=== PATIENT | female | born 1940 | race Caucasian/White ===

== ENCOUNTER 2023-03-27 02:54 | Inpatient (IN) | payer MEDICARE, SELFPAY ==
[2023-03-26 22:23] VITALS: BMI 24.3
[2023-03-26 22:30] VITALS: BP 133/67
[2023-03-26 22:48] LABS: % Basophils 0.3 % (0-2); % Eosinophils 0.1 % (0-6); % Immature Granulocytes 0.4 % (0-0.5); % Lymphocytes 4.5 % (20.5-51.1); % Monocytes 6.8 % (1.7-9.3); % Neutrophils 87.9 % (42.2-75.2); Absolute Basophils 0.1 10^3/uL (0-0.2); Absolute Immature Granulocytes 0.1 10^3/uL (0-0.05); Absolute Lymphocytes 0.8 10^3/uL (1.2-3.4); Absolute Monocytes 1.2 10^3/uL (0.1-0.6); Absolute Neutrophils 15.9 10^3/uL (1.4-6.5); Hematocrit 31.5 % (37.0-47.0); Mean Corp Hgb Conc. 34.9 g/dL (33.0-37.0); Mean Corpuscular Volume 83.1 fL (81.0-99.0); Mean Platelet Volume 9.2 fL (7.4-10.4); Nucleated Red Blood Cells % 0 %; Platelet Count 243 10^3/uL (130-400); Red Blood Cell Count 3.79 10^6/uL (4.20-5.40); Red Cell Dist. Width 13.3 % (11.5-14.5); White Blood Cell Count 18.1 10^3/uL (4.8-10.8)
[2023-03-26 23:00] VITALS: BP 129/68
[2023-03-26 23:01] LABS: ALT (SGPT) 18 U/L (0-35); AST (SGOT) 27 U/L (14-36); Albumin 4.3 g/dl (3.5-5.0); Alkaline Phosphatase 85 U/L (38-126); Blood Urea Nitrogen 13 mg/dl (7-17); Calcium 8.8 mg/dl (8.4-10.2); Carbon Dioxide 25 mmol/L (22-30); Chloride 98 mmol/L (98-107); Estimated Creatinine Clearance 54 ml/min; Glucose 124 mg/dl (70-99); Potassium 3.7 mmol/L (3.5-5.1); Sodium 131 mmol/L (135-145); Total Bilirubin 1.2 mg/dl (0.2-1.3); eGFR > 60.00
[2023-03-26 23:03] LABS: COVID-19 Antigen Negative (Negative)
--- NOTE | 2023-03-26 23:58 | ED.GENMED ---
History of Present Illness
General
Chief Complaint: Cold/Flu/URI Symptoms
Source: patient and family
Time Seen by Provider: 03/26/23 23:46
Travel History
Have you had any contact with someone who has COVID-19?: No
Do you have any symptoms of coronavirus? Fever > 100 degrees, chills, cough, shortness of breath, sore throat, loss of taste or smell, muscle aches, or headache?: Yes
Symptoms:: fever, body aches
History of Present Illness
History of Present Illness:
82-year-old female presents to the emergency room complaining of nausea, body aches, dizziness. Patient began feeling this way today. She was found to have a fever in triage of 100.4. Patient denies sore throat. She denies significant cough. No
diarrhea. Patient was recently treated for urinary tract infection and completed the antibiotic course 2 days ago. She does not know the name of the antibiotic that she took. She denies abdominal pain.
Past History
Past History
ED Past Medical History: HTN and Hypercholesterolemia
ED Past Surgical History: Appendectomy, Bowel resection and Orthopedic (Right knee replacement)
Social History
Tobacco: Non-smoker
Alcohol: None
Drug: None
Living: alone
Employment: Retired
Phy Exam
Physical Exam
Physical Exam:
General: Awake, Alert, Oriented X3. No acute distress.
Vitals: unremarkable
Head: Atraumatic
Eyes: Pupils equal, EOMI
Throat: Airway intact, no exudates
Neck: Trachea midline
Lungs: Clear and equal b/l
Heart: Regular rate, no murmurs
Abd: Soft, mild tenderness in the epigastrium and right upper quadrant, No pulsatile mass
Back: Mild right CVA tenderness
Neuro: Nonfocal
Skin: Warm, dry, no rash
Extremities: pulses equal b/l, no edema
Course
Orders/Labs/Results
Orders:
Orders
03/26/23 22:42
COVID-19 Antigen Urgent
Source: Nasal Swab
Complete Blood Count/With Diff Urgent
Comprehensive Metabolic Panel Urgent
Lipase Urgent
Comment: ADD ON
Influenza A+B Rapid Molecular Urgent
FR[place] Source: Nasal Swab
Specimen Description:
03/26/23 23:56
Urinalysis Reflex To Culture Urgent
Date Specimen was Collected: 03/27/23
Time Specimen was Collected: 00:01
0.9% Sodium Chloride 500 ml [Nss] 500 ml IV BOLUS
Ondansetron Injectable [Zofran] 4 mg IV NOW STA
03/26/23 23:57
Add On- LAB Urgent
Tests Added?: lipase
03/26/23 23:59
Acetaminophen [Tylenol] 650 mg PO NOW STA
03/27/23 00:05
Urine Microscopic Reflex Cult Urgent
Urine Culture Urgent
FRANCE Source: U
Specimen Description:
Date Specimen was Collected: 03/27/23
Time Specimen was Collected: 00:01
03/27/23 00:12
CR Chest - 2 Views Urgent
Reason For Exam: fever
03/27/23 01:28
CefTRIAXone [Rocephin] 1,000 mg IV NOW STA
03/27/23 01:53
Admit/Transfer Patient As Directed
Co-Sign Provider:
Level of Care: Inpatient admission
Assign to:: Telemetry
Physician / Group: [email or web address]
Diagnosis: Complicated UTI, Overactive bladder
Reason for Telemetry: Arrhythmia
Date to Stop Telemetry: 03/30/23
Time to Stop Telemetry: 11:00
Reason for Hospitalization: Complicated UTI, Overactive bladder
Expected length of stay greater than two midnights?: Yes
ELOS- Estimated Length of Stay in days: 4
I certify the patient meets the requirements for IP care: Yes
03/27/23 01:57
Code Status As Directed
Resuscitation Status: Do not resuscitate
Based on pt advanced directive or healthcare POA form: Yes
Blood Culture Routine
FRANCE Source: Blood/Venous
Specimen Description:
DNR Bracelet Application ONCE
03/27/23 02:00
LevoFLOXacin 500 MG/100 ML [Levaquin] 500 mg in 100 ml IV Q24H
03/27/23 03:32
0.9% Sodium Chloride 1000 ml [Nss] 1,000 ml IV 60 mls/hr
03/27/23 03:32
EKG [Electrocardiogram (*1)] Routine
Reason for Study: QTc Monitoring
Consult Notification Routine
Specialty to Notify: Infectious Disease
INFECTIOUS DISEASE CONSULT Routine
Consulting Provider: Altagracia Cabrera
Was physician already notified: No
Reason for consult: Sespsis. Failed OP ABx for UTI.HX ESBL EcoliUCx.POS Bladder stimulator
Activity As Directed
Activity Level: With Assistance
Vital Signs As Directed
Frequency: Per unit guidelines
Weight As Directed
Frequency: Daily
03/27/23 06:00
EKG [Electrocardiogram (*1)] IN AM
Reason for Study: QTc Monitoring
Cholesterol Lowering
At Your Request: Full Participation
Cholesterol Lowering: Sodium, 2 Gram
Basic Metabolic Panel IN AM
Complete Blood Count/No Diff IN AM
03/27/23 08:00
Aspirin Low Dose EC [Aspir Low (Enteric Coated)] 81 mg PO DAILY
Lisinopril [Zestril] 5 mg PO DAILY
Metoprolol Xl [Toprol Xl] 25 mg PO BID
Midodrine [ProAmatine] 2.5 mg PO TID@0800,1300,1800
Paroxetine [Paxil] 40 mg PO DAILY
Rosuvastatin Calcium [Crestor] 20 mg PO DAILY
03/27/23 18:00
Rivaroxaban [Xarelto] 20 mg PO QPM
03/30/23 11:00
DC Protocol for Telemetry ONCE
Abnormal Lab Results
03/26/23 03/27/23
22:42 00:05
WBC 18.1 H 10^3/uL
(4.8-10.8)
RBC 3.79 L 10^6/uL
(4.20-5.40)
Hgb 11.0 L g/dL
(12.0-16.0)
Hct 31.5 L %
(37.0-47.0)
Abs Immat Gran (auto) 0.1 H 10^3/uL
(0-0.05)
Absolute Neuts (auto) 15.9 H 10^3/uL
(1.4-6.5)
Absolute Lymphs (auto) 0.8 L 10^3/uL
(1.2-3.4)
Absolute Monos (auto) 1.2 H 10^3/uL
(0.1-0.6)
Neutrophils % 87.9 H %
(42.2-75.2)
Lymphocytes % 4.5 L %
(20.5-51.1)
Sodium 131 L mmol/L
(135-145)
Glucose 124 H mg/dl
(70-99)
Ur Occult Blood Reflex 2+ A
(Negative)
Leukocyte Esterase Rfl 2+ A
(Negative)
Urine RBC 7-10 A /HPF
(0-2)
Urine WBC (Reflex) >100 A /HPF
(0-5)
Urine Bacteria (Reflex) Moderate A
(Negative)
Urine Yeast Moderate A
(Negative)
Urine Albumin (Reflex) 1+ A
(Neg - Trace)
03/26/23 22:42
03/26/23 22:42
Vital Signs
Initial and Last Documented VS:
Initial Vital Signs
Temp Pulse Resp Pulse Ox
100.4 F H 88 20 97
03/26/23 22:23 03/26/23 22:23 03/26/23 22:23 03/26/23 22:23
Last Documented Vital Signs
Temp Pulse Resp BP Pulse Ox
98.8 F 86 16 132/58 96
03/27/23 03:41 03/27/23 03:41 03/27/23 03:41 03/27/23 03:41 03/27/23 03:41
MDM/Problems Addressed
Differential Diagnosis Includes:
Pyelonephritis, resistant UTI, influenza, COVID
MDM/Problems Addressed:
Viral studies negative. Urine is quite consistent with urinary tract infection. Patient was febrile here. She reports being on 2 courses of antibiotics and immediately has return of symptoms when she stops antibiotics. Culture results were not
available. We did call [facility] for results. They sent urinalysis results but not the culture results. Will start with Rocephin. Urinalysis and culture sent here.
Chronic conditions affecting care: HTN and Other (Hyperlipidemia, history of urinary retention, bladder stimulator)
*Pulse Oximetry
Patient hypoxic: no
*EKG
Interpreted by ED Provider?: Yes
Interpretation: normal
Heart Rate: 83
Rate: normal
Rhythm: sinus
Windfall: normal axis
Interval: normal interval
QRS Pattern: normal QRS
Ischemia: no ischemia
*Durability Technician Interpretation
Rate: normal
Interpretation: normal
Heart Rate: 83
Rhythm: sinus
*Critical Care Note
Total Time (30-74mins, 75-104mins- exclusive of procedures): Not Applicable
Data Reviewed
Review of Other/Old Records Reveals: Testing (Urinalysis results from [facility])
Patient Management
Social determinants of health affecting care: Living situation
ED Attending Note
-
Portions of this chart may have been created with voice recognition software.� Occasional wrong word or��sound alike� substitutions may have occurred due to the inherent limitations of voice recognition software.
Discharge Plan
Departure
Patient Disposition: Admit
Date of Disposition: 03/27/23
Time of Disposition: 01:31
Admit to: Med/Surg
Presentation/result/management discussed w/ accepting MD/DO: Hospitalist
Condition: Fair
Discharge Problem:
Acute UTI
Interventions
Interventions:
*Risk Screen - Suicide Last Done: 03/27/23 04:17
*General Assessment Last Done: 03/26/23 22:23
*Neglect/Abuse Screening Last Done: 03/26/23 22:23
ED- Fall Risk Assessment Last Done: 03/26/23 22:53
*ED COVID-19 Vaccine History Last Done: 03/27/23 04:17
*Nursing Disposition Last Done: 03/27/23 03:30
ED- Pulmonary Assessment Last Done: 03/26/23 22:53
Discharge Date and Time
Discharge Date/Time: 03/27/23 03:32
[2023-03-27] VITALS (9 sets, daily range): BP systolic 96–134; BP diastolic 50–82; BMI 25.2
[2023-03-27] MEDS: TYLENOL 650 MG PO ×3 (00:07→20:57)
[2023-03-27] MEDS: ZOFRAN 4 MG IV (00:08)
[2023-03-27] MEDS: NSS 500 IV (00:13)
[2023-03-27 00:22] LABS: Urine Albumin 1+ (Neg - Trace); Urine Bilirubin Negative (Negative); Urine Character Slightly Cloudy (Clear); Urine Color Yellow; Urine Glucose Negative (Negative); Urine Ketone Negative (Negative); Urine Leukocyte 2+ (Negative); Urine Nitrite Negative (Negative); Urine Occult Blood 2+ (Negative); Urine Urobilinogen Negative (Neg - 1+)
[2023-03-27 00:31] LABS: Lipase 177 U/L (23-300)
[2023-03-27 00:34] LABS: Urine Bacteria Moderate (Negative); Urine White Cell >100 /HPF (0-5)
[2023-03-27 00:35] LABS: Urine Yeast Moderate (Negative)
--- NOTE | 2023-03-27 01:48 | HPS.HSE ---
Family Physician
-
Family Physician: Garrett Bush
Chief Complaint
-
Fever
History of Present Illness
82F HX HX overactive bladder s/p bladder stimulator, UTI seen at ER for evalaution of nausea, body aches, dizziness. Onset today. She reports fever in triage of 100.4. Patient was recently treated for urinary tract infection and completed the
ABx course 2 days ago. he does not know the name of the ABx
ROS
No sore throat.
No cough.
No diarrhea.
No abdominal pain.
Medical History
Past Medical History
Past Medical History: Reports Other
Additional Past Medical History:
Coronary Artery Disease
Essential Hypertension
Hyperlipidemia
Anxiety/Depression
GERD
Overactive Bladder
Past Surgical History: Reports Other
Additional Past Surgical History:
Bilateral Shoulder Arthroscopy
Bilateral Carpal Tunnel
Bilateral Total Knee Replacement
Cholecystectomy
Hysterectomy
Appendectomy
Hemorrhoidectomy
Tonsillectomy
Social History
Tobacco: Non-smoker
Alcohol: None
Living: Alone
Family History
Family History: Not pertinent
Allergies / Home Medications
Allergies reflects when Allergies were last updated in [employer].
Home Medications with original date entered in [employer]
Allergy/Medication List:
Allergies
Allergy/AdvReac Type Severity Reaction Status Date / Time
adhesive tape Allergy Blistering Verified 12/17/22 03:49
cat dander Allergy CONGESTION Verified 12/17/22 17:41
erythromycin base Allergy abdominal Verified 12/17/22 03:49
[Erythromycin Base] pain
Iodinated Contrast Media Allergy GI Verified 12/17/22 03:49
Distress,
SOB
pollen extracts Allergy Congestion Verified 12/17/22 17:41
DUCK Allergy CONGESTION Uncoded 12/17/22 17:41
Home Medications
cholecalciferol (vitamin D3) 25 mcg (1,000 unit) tablet 1,000 units PO DAILY Supplement ##0 05/23/09
lisinopril 5 mg tablet 5 mg PO DAILY Blood Pressure 02/05/16
ascorbic acid (vitamin C) 500 mg tablet (Vitamin C) 500 mg PO DAILY Supplement 03/16/22
aspirin 81 mg tablet,delayed release 81 mg PO DAILY Blood Clot Prevention/Tx 03/16/22
calcium carbonate 600 mg-vitamin D3 5 mcg (200 unit) tablet 1 tab PO BID Supplement 03/16/22
fexofenadine 180 mg tablet 180 mg PO DAILY Allergies 03/16/22
glucosamine sulf dipot chlr,msm,chond 550 mg-C 30 mg-apple 1 mg capsule (Glucosamine Chondroitin) 1 cap PO BID Supplement 03/16/22
isosorbide mononitrate 30 mg tablet,extended release 24 hr 30 mg PO DAILY Heart Disease/Condition 03/16/22
pantoprazole 40 mg tablet,delayed release 40 mg PO QPM Gastrointestinal Issue 03/16/22
paroxetine HCl 40 mg tablet 40 mg PO DAILY Mental Health/Anxiety 12/16/22
rosuvastatin 20 mg tablet 20 mg PO DAILY High Cholesterol 12/16/22
<del>cefdinir</del> <del>300</del> <del>mg</del> <del>capsule</del> <del>300</del> <del>mg</del> <del>PO</del> <del>BID</del> <del>6</del> <del>days</del> <del>#12</del> <del>caps</del> <del>12/19/22</del>
meclizine 25 mg tablet 25 mg PO Q8HPRN PRN vertigo #20 tabs 12/19/22
metoprolol succinate 25 mg tablet,extended release 24 hr 25 mg PO BID Blood Pressure #60 tabs 12/19/22
midodrine 5 mg tablet 2.5 mg PO TID@0800,1300,1800 #90 tabs 12/19/22
rivaroxaban 20 mg tablet (Xarelto) 20 mg PO QPM #30 tabs 12/19/22
<del>ciprofloxacin</del> <del>HCl</del> <del>250</del> <del>mg</del> <del>tablet</del> <del>250</del> <del>mg</del> <del>PO</del> <del>BID</del> <del>#6</del> <del>tabs</del> <del>12/21/22</del>
Review of Systems
-
Constitutional: Reports Fever
EENT: Reports No Symptoms
Respiratory: Reports No Symptoms
Cardiac: Reports No Symptoms
Abdomen/GI: Reports No Symptoms
: Reports No Symptoms
Musculoskeletal: Reports No Symptoms
Skin: Reports No Symptoms
Neurological: Reports No Symptoms
Endocrine: Reports No Symptoms
Hematologic/Lymphatic: Reports No Symptoms
Psych: Reports No Symptoms
Physical Exam
Vital Signs
Vital Signs
Temp Pulse Resp BP Pulse Ox
100.4 F H 82 23 129/68 96
03/26/23 22:23 03/26/23 23:30 03/26/23 23:30 03/26/23 23:00 03/26/23 23:30
Physical Exam
General: Other (see below )
Laboratory Results
-
03/26/23 22:42
03/26/23 22:42
Laboratory Results
Total Bilirubin 1.2 mg/dl (0.2-1.3) 03/26/23 22:42
AST 27 U/L (14-36) 03/26/23 22:42
ALT 18 U/L (0-35) 03/26/23 22:42
Alkaline Phosphatase 85 U/L (38-126) 03/26/23 22:42
Lipase 177 U/L (23-300) 03/26/23 22:42
Data Reviewed
-
Lab Data: Labs Reviewed by me
Old Records: Reviewed
Impression/Plan
-
Reviewed VS: Tc 100.4 , Normotensive, No ST
PE
General: Comfortable and Conversant
HEENT: Anicteric, Moist mucous membranes
Respiratory: Clear and Non Labored Respirations
Cardiac: S1/S2 and Regular Rhythm; No Tachycardia
GI: Soft, mild tenderness in the epigastrium and right upper quadrant
Musculoskeletal: No Clubbing, No Cyanosis and No Edema
Skin: Warm and Dry
Neuro: Awake, Alert, Oriented and No Motor Deficits; No Facial Droop or Tremors
Psych: Calm
Data
WCC 18
Hgb 11
Na 131
nl Cr
nl GFR
POS UA for UTI
UCx sent
NEG Covid Ag
CXR; pending report
Last hospitalist admission 12/18/22 - 12/19/22 P Dxs:
UTI
Prx AF
Postural hypotension
Vertigo
Hyponatremia
Coronary artery disease
Benign essential hypertension
Hyperlipidemia
Anxiety/depression
Gastroesophageal reflux disease
Overactive bladder status post bladder stimulator
12/18/22 ECHO
LVEF 61%
Mild MR
Borderline , peak/mean gradient 14/8 mmHg without aortic regurgitation
nl RH
ASSESSMENT & PLAN
Sepsis due to UTI
Presumed complicated UTI - failed OP PO ABx
Recent UTI s/p completion of unknown ABx 2 days ago
HX Overactive bladder status post bladder stimulator
HX ESBL E Coli POS UCx ( 12/16/22) resistant CFTZ, CFP but sensitive to Cipro, LVQ and Zosyn
- Empiric IV LVQ
- maintained on Myrbetriq and Toviaz as outpatient
- IVF
- f/u UCx, BCx
- ID consult
Hyponatremia - mild, asymtomatic
- IVF and recheck Na in AM
CAD HX ; stable
- cont. aspirin and Imdur
Essential HTN
-Held HCTZ due to hyponatremia
- cont. lisinopril and Metoprolol
Hyperlipidemia
- cont. Crestor
Anxiety/Depression
- cont. Paxil
GERD
- cont. Protonix
DVT Proph: SCDs
Code Status: DNR per patient
IP TLM
[2023-03-27] MEDS: ROCEPHIN 1000 MG IV (01:54)
[2023-03-27] MEDS: LEVAQUIN 100 IV (02:31)
[2023-03-27] MEDS: NSS 1000 IV ×2 (03:48→20:57)
[2023-03-27] MEDS: FLUSH (NSS) 1 FLUSH IV (03:49)
--- NOTE | 2023-03-27 04:00 | PTCARENOTE ---
Received patient from ER. Patient AAOx3, she has urinary frequency/urgency. Patient admitted to the unit. Some nausea, taking sips of water. Normal sinus on the monitor. VSS. Patient verbalized an understanding to ring for all transfers. BSC placed
nearby. Call rocha in reach. Bed alarm placed.
[2023-03-27] MEDS: COMPAZINE 5 MG IV ×3 (05:08→18:15)
--- NOTE | 2023-03-27 05:18 | PTCARENOTE ---
EKG done upon transfer to [facility] per order. Completion time was approximately 0400 and it was reviewed by the covering provider. 6am 2nd EKG not done pending clarification due to proximity of 1st EKG. Will advise maddison NIEVES.
[2023-03-27 08:23] LABS: Hematocrit 28.6 % (37.0-47.0); Hemoglobin 10.3 g/dL (12.0-16.0); Mean Corpuscular Hgb 28.6 pg (27.0-31.0); Mean Corpuscular Volume 79.4 fL (81.0-99.0); Red Cell Dist. Width 13.1 % (11.5-14.5); White Blood Cell Count 17.3 10^3/uL (4.8-10.8)
[2023-03-27 08:56] LABS: Blood Urea Nitrogen 12 mg/dl (7-17); Calcium 8.6 mg/dl (8.4-10.2); Carbon Dioxide 21 mmol/L (22-30); Chloride 99 mmol/L (98-107); Estimated Creatinine Clearance 61 ml/min; Glucose 136 mg/dl (70-99); Potassium 3.9 mmol/L (3.5-5.1); Sodium 131 mmol/L (135-145); eGFR > 60.00
[2023-03-27] MEDS: PAXIL 40 MG PO (08:56)
[2023-03-27] MEDS: CRESTOR 20 MG PO (08:56)
[2023-03-27] MEDS: ProAmatine 2.5 MG PO ×3 (08:56→18:10)
[2023-03-27] MEDS: ASPIR LOW (ENTERIC COATED) 81 MG PO (08:56)
[2023-03-27] MEDS: ZESTRIL 5 MG PO (08:57)
[2023-03-27] MEDS: TOPROL XL 25 MG PO ×2 (08:57→20:56)
--- NOTE | 2023-03-27 10:58 | W.PN.HOSP.TC ---
Today's Communication/Plan
-
Continue IV abx
Follow culture results
Treat nausea
Assessment / Plan
Assessment / Plan
82F woman with a history of overactive bladder s/p bladder stimulator, UTI, seen in the ER for evalaution of nausea, body aches, dizziness. Onset � She�had a fever in triage of 100.4. � Patient was recently treated for urinary tract infection with
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 She does not know the name of the ABx she took.
Problem list at time of admit:
Coronary Artery Disease
Essential Hypertension
Hyperlipidemia
Anxiety/Depression
GERD
Overactive Bladder
Past Surgical History: Reports Other
Additional Past Surgical History:
Bilateral Shoulder Arthroscopy
Bilateral Carpal Tunnel
Bilateral Total Knee Replacement
Cholecystectomy
Hysterectomy
Appendectomy
Hemorrhoidectomy
Tonsillectomy
1. Sepsis due to UTI: continues. Today had fever. Presumed complicated UTI - with failed OP PO ABx
Complicated also by HX Overactive bladder status post bladder stimulator
HX ESBL E Coli POS UCx ( 12/16/22) resistant CFTZ, CFP but sensitive to Cipro, LVQ and Zosyn
- Continue Empiric IV LVQ
- maintained on Myrbetriq and Toviaz as outpatient
- continue IVF
- f/u UCx, BCx
- ID consult appreciated
2. Hyponatremia - mild, asymtomatic, Na now 141
- Continue IVF and recheck Na in AM
3. CAD HX ; stable, no symptoms
- cont. aspirin and� Imdur
4. Essential HTN, BP in reasonable range for inpatient BP
-Held HCTZ initially due to hyponatremia, will restart today
- cont.� lisinopril and Metoprolol
5. Hyperlipidemia
- cont. Crestor
6. Anxiety/Depression
- cont.� Paxil
7. GERD, now with nausea
- cont. Protonix
- add nausea control that does not conflict with other meds
DVT Proph: SCDs
Code Status: DNR per patient
Anticipated Discharge: 24 - 48 hours
Subjective/Interval History
-
Date of Service: March 27, 2023
Objective Data
-
Labs:
Laboratory Results
03/26/23 03/27/23
22:42 08:02
WBC 17.3 H
Hgb 10.3 L
Hct 28.6 L
Plt Count Pending
Sodium 131 L 131 L
Potassium 3.7 3.9
Chloride 98 99
Carbon Dioxide 25 21 L
BUN 13 12
Creatinine 0.7 0.6
Glucose 124 H 136 H
Calcium 8.8 8.6
Total Bilirubin 1.2
AST 27
ALT 18
Alkaline Phosphatase 85
Vital Signs:
Vital Signs
Temp Pulse Resp BP Pulse Ox
100.2 F 87 16 111/54 94
03/27/23 10:54 03/27/23 10:54 03/27/23 10:54 03/27/23 10:54 03/27/23 10:54
I&O
03/26/23 03/27/23 03/28/23
06:59 06:59 06:59
Intake Total 440 / 440
Output Total 200 / 200
Balance 240 / 240
--- NOTE | 2023-03-27 12:32 | PTCARENOTE ---
pt given prn compazine for nausea. pt had episode of vomiting this morning. total of 30ml clear output. pt dealing with urinary frequency and is oob to the commode x1. receiving IVF through her left wrist site.
--- NOTE | 2023-03-27 14:34 | CON.ID ---
Consultation
-
Date/Time Consultation Requested: March 27, 2023 0332
Date/Time Consultation Performed: March 27, 2023 1430
Requesting Provider: Dr. Bertram Fraser
Performing Provider: Dr. Altagracia Cabrera
Reason for Consultation: Sepsis, failed outpatient antibiotic for UTI, has bladder stimulator
Chief Complaint / Past History
Chief Complaint
Weakness and nausea
History of Present Illness
82-year-old female with hypertension, CAD, overactive bladder, bladder stimulator placement last year who presented to the hospital last night due to several day history of weakness, dizziness, nausea and urinary urgency. She states her PCP
recently treated her for UTI which she completed once a day antibiotic 2 days ago. She cannot recall the name of the antibiotic. The urinary symptoms improved slightly but then recurred after she finished the antibiotic. No flank pain. Positive
fevers and chills. She is currently on levofloxacin. She continues to have shaking chills. Nausea is better.
No vomiting or diarrhea.
Past History
Additional Past Medical History:
Hypertension
Coronary Artery Disease
Hyperlipidemia
Anxiety/Depression
GERD
Overactive Bladder, bladder stimulator placement
Afib
Bilateral Shoulder Arthroscopy
Bilateral Carpal Tunnel
Bilateral Total Knee Replacement
Cholecystectomy
Hysterectomy
Appendectomy
Hemorrhoidectomy
Tonsillectomy
Allergy History:
adhesive tape Allergy (Verified 12/17/22 03:49)
Blistering
cat dander Allergy (Verified 12/17/22 17:41)
CONGESTION
erythromycin base [Erythromycin Base] Allergy (Verified 12/17/22 03:49)
abdominal pain
Iodinated Contrast Media Allergy (Verified 12/17/22 03:49)
GI Distress, SOB
pollen extracts Allergy (Verified 12/17/22 17:41)
Congestion
DUCK Allergy (Uncoded 12/17/22 17:41)
CONGESTION
Medications Reviewed: Yes
Current Antibiotics:
Levofloxacin IV
Social History
Tobacco: Non-Smoker
Alcohol: None
Drug: None
Family History
Family History: Not Pertinent
Review of Systems
Review of Systems
General: Fever, Chills and Change in Appetite
HEENT: Negative Sinus Problems, Headache or Pharyngitis
Respiratory: Negative Dyspnea or Cough
Gasteroenterology: Nausea; Negative Vomiting
Genital / Urological: Negative Flank Pain
Endocrine: Weakness and Fatigue
Skin / Hair / Nails: Negative Rash
Neurological: Dizziness
All systems: All other systems were reviewed and were negative
Vital Signs
Temp Pulse Resp BP Pulse Ox
100.2 F 87 16 111/54 94
03/27/23 10:54 03/27/23 10:54 03/27/23 10:54 03/27/23 12:15 03/27/23 10:54
Selected Entries
03/27/23
07:43
Temp 101.7 F H
Physical Exam
Physical Exam
Constitutional: Acutely Ill and Other (shivering)
Eyes: No Conjunctival Hemorrhage and Sclera Anicteric
Cardiovascular: Regular Rate and S1/S2
Pulmonary: Clear
Gastrointestinal: Soft, Non Tender, Non Distended and Normal Bowel Sounds
Genito-Urinary: Negative Al or CVA Tenderness
Extremities: Negative Edema
Neurological: AO x 3
Lab / Diagnostic Study Results
03/27/23 08:02
03/27/23 08:02
Abs Immat Gran (auto) 0.1 10^3/uL (0-0.05) H 03/26/23 22:42
Absolute Neuts (auto) 15.9 10^3/uL (1.4-6.5) H 03/26/23 22:42
Absolute Lymphs (auto) 0.8 10^3/uL (1.2-3.4) L 03/26/23 22:42
Absolute Monos (auto) 1.2 10^3/uL (0.1-0.6) H 03/26/23 22:42
Absolute Basos (auto) 0.1 10^3/uL (0-0.2) 03/26/23 22:42
Immature Gran % 0.4 % (0-0.5) 03/26/23 22:42
Neutrophils % 87.9 % (42.2-75.2) H 03/26/23 22:42
Lymphocytes % 4.5 % (20.5-51.1) L 03/26/23 22:42
Monocytes % 6.8 % (1.7-9.3) 03/26/23:
Eosinophils % 0.1 % (0-6) 03/26/23 22:42
Basophils % 0.3 % (0-2) 03/26/23 22:42
Microbiology Results
Micro:
03/27/23 08:02 Blood Culture - Pending
Blood/Venous
03/27/23 00:05 Urine Culture - Pending
Urine
03/26/23 22:42 Influenza Types A & B (JULIET) - Final
Nasal Swab Negative for Influenza A & B, NAAT
Negative results must be combined with clinical observations
and patient history.
Nucleic Acid Amplification test (NAAT)performed on the
[email or web address] platform.
CXR: No acute cardiopulmonary process.
Assessment / Plan
# Symptomatic UTI
-hx of ESBL-Ecoli
- UA 2+ LE, >100wbc
-Start Ertapenem IV
-DC levofloxacin
- Follow blood cx. Ordered 2nd set.
# Sepsis with fever and leukocytosis due to UTI
- Trend temps/wbc
[2023-03-27] MEDS: INVANZ 60 MG IV (15:46)
[2023-03-27] MEDS: COLACE 100 MG PO (15:53)
[2023-03-27] MEDS: XARELTO 20 MG PO (18:10)
--- NOTE | 2023-03-27 18:24 | PTCARENOTE ---
Addendum entered by Joan Turner RN 03/27/23 18:52:
large liquid loose bm on bedside commode after colace administration
Original Note:
during day shift patient verbalizing not having a bm in a few days. made aware. colace prn ordered. pt took whole with water this afternoon. see MAR.
[2023-03-28] VITALS (7 sets, daily range): BP systolic 113–149; BP diastolic 59–91; BMI 24.9
[2023-03-28] MEDS: COMPAZINE 5 MG IV ×2 (05:08→17:26)
[2023-03-28 06:49] LABS: Hematocrit 26.8 % (37.0-47.0); Hemoglobin 9.4 g/dL (12.0-16.0); Mean Corp Hgb Conc. 35.1 g/dL (33.0-37.0); Mean Corpuscular Hgb 28.7 pg (27.0-31.0); Mean Platelet Volume 9.5 fL (7.4-10.4); Platelet Count 175 10^3/uL (130-400); Red Blood Cell Count 3.27 10^6/uL (4.20-5.40); Red Cell Dist. Width 13.3 % (11.5-14.5); White Blood Cell Count 12.1 10^3/uL (4.8-10.8)
[2023-03-28 07:08] LABS: Blood Urea Nitrogen 11 mg/dl (7-17); Calcium 8.2 mg/dl (8.4-10.2); Carbon Dioxide 22 mmol/L (22-30); Chloride 104 mmol/L (98-107); Estimated Creatinine Clearance 61 ml/min; Glucose 126 mg/dl (70-99); Potassium 3.3 mmol/L (3.5-5.1); Sodium 132 mmol/L (135-145); eGFR > 60.00
[2023-03-28] MEDS: TOPROL XL 25 MG PO ×2 (09:20→19:41)
[2023-03-28] MEDS: ASPIR LOW (ENTERIC COATED) 81 MG PO (09:20)
[2023-03-28] MEDS: ZESTRIL 5 MG PO (09:21)
[2023-03-28] MEDS: PAXIL 40 MG PO (09:22)
[2023-03-28] MEDS: CRESTOR 20 MG PO (09:22)
--- NOTE | 2023-03-28 10:27 | W.PN.HOSP.TC ---
Today's Communication/Plan
-
see bold
Assessment / Plan
Assessment / Plan
Gen: NAD, AAOx3.
Eyes: EOMI, PERRLA, no scleral icterus.
Neck: supple.
CV: RRR, +S1/S2, 2/6 systolic murmurm
Resp: CTAB, no rales, wheezes, or rhonchi.
Abd: +BS, soft, NT, ND
Skin: No rashes.
Neuro: CN 2-12 intact, non-focal.
Psych: Normal mood and affect.
03/27/23 08:02 Blood/Venous Blood Culture - Preliminary
No Growth in 24 hours- Final report to follow
03/26/23 22:42 Nasal Swab Influenza Types A & B (JULIET) - Final
Negative for Influenza A & B, NAAT
Negative results must be combined with clinical observations
and patient history.
Nucleic Acid Amplification test (NAAT)performed on the
[employer] platform.
Sepsis due to UTI:
-Complicated (overactive bladder s/p bladder stimulator)
-Was on oral antibiotics for 2 days prior to admission
-cont Invanz as per ID
Other problems:
Hyponatremia, stable
CAD: cont BB/ASA
Essential HTN: cont Imdur/BB, no HCTZ with hyponatremia
Hyperlipidemia: cont statin
Anxiety/Depression: cont Paxil
GERD: cont PPI
DNR/SCDs
Anticipated Discharge: 24 - 48 hours
Subjective/Interval History
-
Date of Service: March 28, 2023
pt c/o fatigue and dizziness.
Objective Data
-
Labs:
Laboratory Results
03/28/23
06:28
WBC 12.1 H
Hgb 9.4 L
Hct 26.8 L
Plt Count 175 D
Sodium 132 L
Potassium 3.3 L
Chloride 104
Carbon Dioxide 22
BUN 11
Creatinine 0.6
Glucose 126 H
Calcium 8.2 L
Vital Signs:
Vital Signs
Temp Pulse Resp BP Pulse Ox
98.9 F 74 16 127/66 95
03/28/23 07:18 03/28/23 09:21 03/28/23 07:18 03/28/23 09:21 03/28/23 07:18
I&O
03/27/23 03/28/23 03/29/23
06:59 06:59 06:59
Intake Total 440 / 440 2880 / 2880
Output Total 200 / 200 400 / 400
Balance 240 / 240 2480 / 2480
[2023-03-28] MEDS: ProAmatine PO (12:26)
[2023-03-28] MEDS: ProAmatine 2.5 MG PO ×2 (12:28→17:22)
[2023-03-28] MEDS: NSS 1000 IV (12:29)
[2023-03-28] MEDS: INVANZ 60 MG IV (14:44)
--- NOTE | 2023-03-28 16:18 | CM ---
manager document reviewed patient's chart and met with patient and patient lives with her partner at [facility] independent living, patient is independent with adl's and ambulation, patient occasionally uses a walker, patient drives, Patient has a
prescription plan and uses [facility] as they deliver.
PCP: Dr. Bush
Plan; Home when stable, no needs.
[2023-03-28] MEDS: XARELTO 20 MG PO (17:22)
[2023-03-28] MEDS: TYLENOL 650 MG PO (22:23)
[2023-03-28] MEDS: LOPRESSOR 5 MG IV (22:28)
[2023-03-29] VITALS (7 sets, daily range): BP systolic 100–133; BP diastolic 63–73; BMI 25.0
[2023-03-29] MEDS: NSS 1000 IV ×2 (06:08→23:26)
--- NOTE | 2023-03-29 07:22 | PTCARENOTE ---
Pt went from SR into Afib rythm on the monitor, with HR sustaining on 120-130sh with frequent HR spikes to 140-147 . VS 122/85, T101.6. PT denied any chest pain, SOB or c/o dizziness. Tylenol PRN given, cool compresses applied, client service consultant CUSTOMER ACQUISITION MANAGER made
aware of HR/rythm and new order for PRN IV lopressor given with + effects.
--- NOTE | 2023-03-29 07:42 | W.PN.HOSP.TC ---
Today's Communication/Plan
-
see bold
Assessment / Plan
Assessment / Plan
Gen: NAD, AAOx3.
Eyes: EOMI, PERRLA, no scleral icterus.
Neck: supple.
CV: remains RRR, +S1/S2, 2/6 systolic murmur
Resp: remains CTAB, no rales, wheezes, or rhonchi.
Abd: remains +BS, soft, NT, ND
Skin: No rashes.
Neuro: CN 2-12 intact, non-focal.
Psych: Normal mood and affect.
03/27/23 00:05 Urine Urine Culture - Preliminary
Escherichia coli
03/27/23 15:52 Blood/Venous Blood Culture - Preliminary
No Growth in 24 hours- Final report to follow
03/27/23 08:02 Blood/Venous Blood Culture - Preliminary
No Growth in 24 hours- Final report to follow
03/26/23 22:42 Nasal Swab Influenza Types A & B (JULIET) - Final
Negative for Influenza A & B, NAAT
Negative results must be combined with clinical observations
and patient history.
Nucleic Acid Amplification test (NAAT)performed on the
[employer] ID NOW platform.
Sepsis due to UTI:
-Complicated (overactive bladder s/p bladder stimulator)
-Was on oral antibiotics for 2 days prior to admission
-cont Invanz as per ID
Other problems:
Hyponatremia, stable
CAD: cont BB/ASA
Essential HTN: cont Imdur/BB, no HCTZ with hyponatremia
Hyperlipidemia: cont statin
Anxiety/Depression: cont Paxil
GERD: cont PPI
DNR/SCDs
Anticipated Discharge: Within 24 hours
Subjective/Interval History
-
Date of Service: March 29, 2023
Pt reports she feels 'better' today.
Objective Data
-
Vital Signs:
Vital Signs
Temp Pulse Resp BP Pulse Ox
97.9 F 65 18 112/63 97
03/29/23 03:42 03/29/23 03:42 03/29/23 03:42 03/29/23 03:42 03/29/23 03:42
I&O
03/28/23 03/29/23 03/30/23
06:59 06:59 06:59
Intake Total 2880 / 2880 2520 / 2520
Output Total 400 / 400
Balance 2480 / 2480 2520 / 2520
[2023-03-29] MEDS: IMDUR (EXTENDED RELEASE) 30 MG PO (08:44)
[2023-03-29] MEDS: PAXIL 40 MG PO (08:44)
[2023-03-29] MEDS: CRESTOR 20 MG PO (08:44)
[2023-03-29] MEDS: TOPROL XL 25 MG PO ×2 (08:44→19:23)
[2023-03-29] MEDS: ASPIR LOW (ENTERIC COATED) 81 MG PO (08:44)
[2023-03-29] MEDS: ProAmatine 2.5 MG PO ×3 (08:44→17:32)
--- NOTE | 2023-03-29 14:46 | W.PN.ID1 ---
Date of Service
Date of Service: March 29, 2023
Today's Communication
See below.
Assessment / Plan
# Symptomatic UTI
-hx of ESBL-Ecoli
- UA 2+ LE, >100wbc
-Ucx E. coli
-Continue Ertapenem IV through today (d3).
- Tomorrow transition to Levofloxacin 500mg po qd through 04/01/23.
# Fever recurred last night x 2
# Leukocytosis trending down.
-Blood cx's neg to date
- Trend temps/wbc
#Additional Past Medical History:
Hypertension
Coronary Artery Disease
Hyperlipidemia
Anxiety/Depression
GERD
Overactive Bladder, bladder stimulator placement
Afib
Bilateral Shoulder Arthroscopy
Bilateral Carpal Tunnel
Bilateral Total Knee Replacement
Cholecystectomy
Hysterectomy
Appendectomy
Hemorrhoidectomy
Tonsillectomy
Chief Complaint
-: UTI
Subjective / Review of Systems
Starting to feel better, not as weak.
Vital Signs / Physical Exam
Vital Signs
Vital Signs
Temp Pulse Resp BP Pulse Ox
97.4 F 70 16 100/71 96
03/29/23 11:10 03/29/23 13:36 03/29/23 11:10 03/29/23 13:36 03/29/23 11:10
Selected Entries
03/28/23
22:22
Temp 101.6 F H
Physical Exam
Constitutional: No Acute Distress and Comfortable
Pulmonary: Clear
Gastrointestinal: Soft, Non Tender, Non Distended and Normal Bowel Sounds
Genito-Urinary: Negative CVA Tenderness
Neurological: Awake, Alert (more alert) and AO x 3
Objective Data
Lab Data
Lab Results
03/28/23 06:28
03/28/23 06:28
Estimated Creat Clear 61 ml/min 03/28/23 06:28
Total Bilirubin 1.2 mg/dl (0.2-1.3) 03/26/23 22:42
AST 27 U/L (14-36) 03/26/23 22:42
ALT 18 U/L (0-35) 03/26/23 22:42
Alkaline Phosphatase 85 U/L (38-126) 03/26/23 22:42
Most recent labs reviewed.
Micro Results:
03/27/23 00:05 Urine Culture - Final
Urine Escherichia coli
03/27/23 08:02 Blood Culture - Preliminary
Blood/Venous No Growth in 48 hours- Final report to follow
03/27/23 15:52 Blood Culture - Preliminary
Blood/Venous No Growth in 24 hours- Final report to follow
03/26/23 22:42 Influenza Types A & B (JULIET) - Final
Nasal Swab Negative for Influenza A & B, NAAT
Negative results must be combined with clinical observations
and patient history.
Nucleic Acid Amplification test (NAAT)performed on the
[employer] platform.
CXR: No acute cardiopulmonary process.
[2023-03-29] MEDS: INVANZ 60 MG IV (15:15)
--- NOTE | 2023-03-29 16:00 | CM ---
Reviewed the chart notes and spoke with the patient at the bedside. IMM signed and placed on the chart. CM continues to be available to patient/family and is monitoring medical plan for needs at discharge.
Plan: Discharge to home when medically stable.
[2023-03-29] MEDS: XARELTO 20 MG PO (17:32)
[2023-03-29] MEDS: TYLENOL 650 MG PO (17:43)
[2023-03-30] MEDS: TYLENOL 650 MG PO (02:03)
[2023-03-30 03:21] VITALS: BMI 25.2
[2023-03-30 06:26] LABS: Hematocrit 27.5 % (37.0-47.0); Hemoglobin 9.3 g/dL (12.0-16.0); Mean Corp Hgb Conc. 33.8 g/dL (33.0-37.0); Mean Corpuscular Hgb 28.5 pg (27.0-31.0); Mean Corpuscular Volume 84.4 fL (81.0-99.0); Mean Platelet Volume 9.4 fL (7.4-10.4); Platelet Count 241 10^3/uL (130-400); Red Blood Cell Count 3.26 10^6/uL (4.20-5.40); Red Cell Dist. Width 13.1 % (11.5-14.5); White Blood Cell Count 7.7 10^3/uL (4.8-10.8)
[2023-03-30 07:42] VITALS: BP 147/79
[2023-03-30] MEDS: LEVAQUIN 500 MG PO (08:09)
[2023-03-30] MEDS: CRESTOR 20 MG PO (08:10)
[2023-03-30] MEDS: ASPIR LOW (ENTERIC COATED) 81 MG PO (08:10)
[2023-03-30] MEDS: IMDUR (EXTENDED RELEASE) 30 MG PO (08:11)
[2023-03-30] MEDS: TOPROL XL 25 MG PO (08:12)
[2023-03-30] MEDS: PAXIL 40 MG PO (08:13)
[2023-03-30] MEDS: ProAmatine PO (10:21)
--- NOTE | 2023-03-30 10:28 | W.PN.HOSP.TC ---
Addendum entered and electronically signed by Oswaldo De Luna MD 03/30/23 13:35:
Total time spent on d/c = 31 min. This included today's physical exam, progress note, review of laboratory and diagnostic data, preparation of discharge documents and prescriptions, and discussions about the pt's hospital course and discharge plan
with the patient and other electromedical service engineer involved in the patient's care.
Original Note:
Today's Communication/Plan
-
Check BMP, d/c later today
Assessment / Plan
Assessment / Plan
Gen: NAD, AAOx3.
Eyes: EOMI, PERRLA, no scleral icterus.
Neck: supple.
CV: remains RRR, +S1/S2, 2/6 systolic murmur
Resp: remains CTAB, no rales, wheezes, or rhonchi.
Abd: remains +BS, soft, NT, ND
Skin: No rashes.
Neuro: CN 2-12 intact, non-focal.
Psych: Normal mood and affect.
03/27/23 00:05 Urine Urine Culture - Preliminary
Escherichia coli
03/27/23 15:52 Blood/Venous Blood Culture - Preliminary
No Growth in 24 hours- Final report to follow
03/27/23 08:02 Blood/Venous Blood Culture - Preliminary
No Growth in 24 hours- Final report to follow
03/26/23 22:42 Nasal Swab Influenza Types A & B (JULIET) - Final
Negative for Influenza A & B, NAAT
Negative results must be combined with clinical observations
and patient history.
Nucleic Acid Amplification test (NAAT)performed on the
[employer] ID NOW platform.
Sepsis due to UTI:
-Complicated (overactive bladder s/p bladder stimulator)
-leukocytosis, POA, now resolved
-Was on oral antibiotics for 2 days prior to admission
-was on Invanz, now transitioned to Levaquin 500mg daily through 04/01/23
Other problems:
Hyponatremia, stable
Hypokalemia
CAD: cont BB/ASA
Essential HTN: cont Imdur/BB, no HCTZ with hyponatremia
Hyperlipidemia: cont statin
Anxiety/Depression: cont Paxil
GERD: cont PPI
DNR/SCDs
Anticipated Discharge: Today
Subjective/Interval History
-
Date of Service: March 30, 2023
Objective Data
-
Labs:
Laboratory Results
03/30/23
05:01
WBC 7.7
Hgb 9.3 L
Hct 27.5 L
Plt Count 241 D
Vital Signs:
Vital Signs
Temp Pulse Resp BP Pulse Ox
97.4 F 60 16 147/79 97
03/30/23 07:42 03/30/23 10:21 03/30/23 07:42 03/30/23 10:21 03/30/23 08:00
I&O
03/29/23 03/30/23 03/31/23
06:59 06:59 06:59
Intake Total 2520 / 2520 1580 / 1580
Output Total 500 / 500
Balance 2520 / 2520 1080 / 1080
[2023-03-30 11:11] VITALS: BP 138/69
--- NOTE | 2023-03-30 11:20 | PTCARENOTE ---
pt refused care at this time. asked to complete later in the day.
[2023-03-30 11:39] LABS: Blood Urea Nitrogen 6 mg/dl (7-17); Calcium 8.1 mg/dl (8.4-10.2); Carbon Dioxide 24 mmol/L (22-30); Chloride 108 mmol/L (98-107); Estimated Creatinine Clearance 61 ml/min; Glucose 115 mg/dl (70-99); Potassium 3.3 mmol/L (3.5-5.1); Sodium 137 mmol/L (135-145); eGFR > 60.00
--- NOTE | 2023-03-30 13:40 | W.DCSUMMARY ---
Discharge Summary
Discharge Data
Date of Admission: 03/27/23
Date of Discharge: 03/30/23
-
Pending Results: No
Hospital Course
Primary diagnoses:
Sepsis due to complicated urinary tract infection
Secondary diagnoses:
Overactive bladder s/p bladder stimulator
Hyponatremia
Hypokalemia
Coronary disease
Essential hypertension
Hyperlipidemia
Anxiety
Depression
Gastroesophageal reflux disease
Consultants:
Infectious disease
Imaging:
CXR: No acute cardiopulmonary process.
82-year-old female who presented with a chief complaint of fevers outlined in the H&P done on admission. Hospital course by problem list:
Sepsis due to complicated UTI:�On admission the patient met sepsis criteria with fever and leukocytosis. Urinalysis was indicative of the source being a urinary tract infection. Patient was initially placed on Levaquin and then transition to
Invanz. She had a leukocytosis on admission that resolved while hospitalized. She was supported with IV fluids. Urine culture grew E. coli. Was sensitive to Levaquin and she was transitioned to Levaquin through April 01, 2023 at the time of
discharge.
Discharge Plan
-
Patient Disposition: Home (Routine Discharge)
Discharge Diagnosis/Procedures: Sepsis due to complicated urinary tract infection
Condition: Good
Diet: Other diet
Additional Diets: Heart healthy
Activity: As tolerated
Driving Restrictions: As prior to admission
Bathing Restrictions: None
Blood Work: BMP and CBC in 1 week, prescription from PCP
Referrals:
Garrett Bush MD [Family Provider] - in less than 1 week
Prescriptions:
New
levofloxacin 500 mg Tablet
500 mg PO DAILY Qty: 2 0RF
potassium chloride 20 mEq tablet extended release
20 meq PO DAILY Qty: 30 0RF
Continued
cholecalciferol (vitamin D3) 1,000 UNITS tablet
1,000 units PO DAILY Qty: 0
Patient Comments:
PER DISCHARGE INSTRUCTIONS FROM 12/19/22
lisinopril 5 MG tablet
5 mg PO DAILY
isosorbide mononitrate 30 mg Tablet Extended Release 24 Hr
30 mg PO DAILY
Patient Comments:
PER DISCHARGE INSTRUCTIONS FROM 12/19/22
fexofenadine 180 mg Tablet
180 mg PO DAILY
Patient Comments:
PER DISCHARGE INSTRUCTIONS FROM 12/19/22
calcium carbonate-vitamin D3 600 mg-5 mcg (200 unit) Tablet
1 tab PO BID
Patient Comments:
PER DISCHARGE INSTRUCTIONS FROM 12/19/22
aspirin 81 mg Tablet,Delayed Release (Dr/Ec)
81 mg PO DAILY
Rx Instructions:
PER DISCHARGE INSTRUCTIONS FROM 12/19/22
ascorbic acid (vitamin C) [Vitamin C] 500 mg Tablet
500 mg PO DAILY
Patient Comments:
PER DISCHARGE INSTRUCTIONS FROM 12/19/22
Glucosamine Chondroitin 550-30-1 mg Capsule
1 cap PO BID
Patient Comments:
PER DISCHARGE INSTRUCTIONS FROM 12/19/22
pantoprazole 40 MG tablet,delayed release (DR/EC)
40 mg PO QPM
Patient Comments:
PER DISCHARGE INSTRUCTIONS FROM 12/19/22
paroxetine HCl 40 mg tablet
40 mg PO DAILY
Patient Comments:
PER DISCHARGE INSTRUCTIONS FROM 12/19/22
rosuvastatin 20 mg tablet
20 mg PO DAILY
Patient Comments:
PER DISCHARGE INSTRUCTIONS FROM 12/19/22
midodrine 5 mg Tablet
2.5 mg PO TID@0800,1300,1800 Qty: 90 0RF
Patient Comments:
PER DISCHARGE INSTRUCTIONS FROM 12/19/22
meclizine 25 mg Tablet
25 mg PO Q8HPRN PRN (Reason: vertigo) Qty: 20 0RF
Patient Comments:
PER DISCHARGE INSTRUCTIONS FROM 12/19/22
Xarelto 20 mg Tablet
20 mg PO QPM Qty: 30 0RF
Patient Comments:
PER DISCHARGE INSTRUCTIONS FROM 12/19/22
metoprolol succinate 25 mg Tablet Extended Release 24 Hr
25 mg PO BID Qty: 60 0RF
Patient Comments:
PER DISCHARGE INSTRUCTIONS FROM 12/19/22
Discharge Orders:
Discharge Patient (As Directed); Ordered 03/30/23
Ordered By: Oswaldo De Luna
[2023-03-30 13:47] VITALS: BP 110/60
[2023-03-30] MEDS: ProAmatine 2.5 MG PO (13:48)
[2023-03-30] MEDS: KCL 40 MEQ PO (13:49)
--- NOTE | 2023-03-30 14:04 | CM ---
Reviewed the chart notes and spoke with the patient at the bedside. The patient is being discharged to home today with no needs being identified. The patient's daughter will provide transportation. CM continues to be available to patient/family
and is monitoring medical plan for needs at discharge.
Plan: Discharge to home today with no needs.
[2023-03-30 14:07] LABS: Magnesium 1.9 mg/dl (1.6-2.3)
[2023-03-30 15:05] VITALS: BP 144/78
== END 2023-03-30 15:46 | disposition home or self-care (01) | DRG 872 ==
LOC: 2 NORTH 02:54
PROVIDERS: Emergency Medicine; Internal Medicine; ADMITTING PHYSICIAN Internal Medicine; ATTENDING PHYSICIAN Internal Medicine; CONSULT PHYSICIAN Internal Medicine Infectious Disease; EMERGENCY PHYSICIAN Emergency Medicine; FAMILY PHYSICIAN Internal Medicine
DX: A41.9 Sepsis, unspecified organism (principal); N39.0 Urinary tract infection, site not specified; E87.1 Hypo-osmolality and hyponatremia; N32.81 Overactive bladder; E87.6 Hypokalemia; I10 Essential (primary) hypertension; F41.9 Anxiety disorder, unspecified; F32.A Depression, unspecified; K21.9 Gastro-esophageal reflux disease without esophagitis; I25.10 Atherosclerotic heart disease of native coronary artery without angina pectoris; E78.00 Pure hypercholesterolemia, unspecified; B96.20 Unspecified Escherichia coli [E. coli] as the cause of diseases classified elsewhere; Z66 Do not resuscitate; Z79.01 Long term (current) use of anticoagulants
CPT/HCPCS: 71046; 80048; 80053; 81003; 81015; 83690; 83735; 85025; 85027; 87040; 87077; 87086; 87186; 87502; 87811; 93005; 96365; 96375; 99285; J1335

== ENCOUNTER → 2025-02-09 09:07 | Outpatient (REF) | payer MEDICARE, SELFPAY | LOC: PAVMRI 09:07 | PROVIDERS: ATTENDING PHYSICIAN Internal Medicine | DX: M54.50 Low back pain, unspecified (principal) | CPT/HCPCS: 72148; 76014; 76015 ==